=== PATIENT | male | born 1950 | race Caucasian/White ===

== ENCOUNTER 2017-07-28 16:27 | Emergency (ER) | payer MEDICARE, BC ==
[2017-07-28 17:10] VITALS: BP 167/100
--- NOTE | 2017-07-28 18:20 | EDM.PDOC ---
ED HPI GENERAL MEDICAL PROBLEM - General Chief Complaint: Back Pain or Injury Stated Complaint: LOWER BACK PAIN Time Seen by Provider: 07/28/17 18:05 Source of Information: Reports: Patient History Limitations: Reports: No Limitations - History of Present Illness INITIAL COMMENTS - FREE TEXT/NARRATIVE: 67 yo male here with low back pain for a couple days not associated with injury. Has pain going down the R leg to the level of the knee. Worse with coughing. Pain began when in [place], but didn't want to miss out on the hunting experience so [place] and was worse after the long trip. Has a PHx of CVA , but not back problems. Onset: Gradual Onset Date: 07/25/17 Duration: Day(s):, Getting Worse Location: Reports: Back, Radiates to (R knee) Quality: Reports: Ache Severity: Moderate Improves with: Reports: Rest Worsens with: Reports: Movement Context: Reports: Other (unknown) Associated Symptoms: Reports: No Other Symptoms Treatments [employer]: Reports: Other (see below) (none) Lower Back Pain Score (Numeric/FACES): 5 - Related Data Allergies Allergy/AdvReac Type Severity Reaction Status Date / Time No Known Allergies Allergy Verified 07/28/17 17:10 Home Meds: Home Meds atorvaSTATin [Lipitor] 40 mg PO BEDTIME 07/06/13 [History] Acetaminophen/HYDROcodone [Marienthal 325-5 MG] 1 - 2 tab PO Q4H PRN #30 tab [Rx] Aspirin [Halfprin] 1 tab PO BEDTIME 07/28/17 [History] Cholecalciferol (Vitamin D3) [Vitamin D3] 1 tab PO DAILY 07/28/17 [History] Lisinopril [Lisinopril] 1 tab PO DAILY 07/28/17 [History] Multivitamin [Multivitamins] 1 tab PO DAILY 07/28/17 [History] Prednisone [IJD: Prednisone] 10 mg PO ASDIRECTED #30 tab 07/28/17 [Rx] Vitamin B Complex & Vit C No.4 [Super B Complex] 1 tab PO DAILY 07/28/17 [ History] Past Medical History - Past Health History Medical/Surgical History: Denies Medical/Surgical History HEENT History: Reports: Impaired Vision Cardiovascular History: Reports: High Cholesterol Neurological History: Reports: CVA - Past Surgical History Musculoskeletal Surgical History: Reports: Other (See Below) Other Musculoskeletal Surgeries/Procedures:: bunionectomy Social & Family History - Tobacco Use Smoking Status *Q: Never Smoker - Alcohol Use Days Per Week of Alcohol Use: 1 Number of Drinks Per Day: 1 Total Drinks Per Week: 1 - Recreational Drug Use Recreational Drug Use: No ED ROS GENERAL - Review of Systems Review Of Systems: See Below Constitutional: Reports: No Symptoms Respiratory: Reports: No Symptoms Cardiovascular: Reports: No Symptoms GI/Abdominal: Reports: No Symptoms : Reports: No Symptoms Musculoskeletal: Reports: Back Pain Skin: Reports: No Symptoms Neurological: Reports: Other (pain radiates to the R knee.) Psychiatric: Reports: No Symptoms ED EXAM,LOWER BACK PAIN/INJURY - Physical Exam Exam: See Below Exam Limited By: No Limitations General Appearance: Alert, WD/WN, No Apparent Distress Head: Atraumatic, Normocephalic Respiratory/Chest: No Respiratory Distress, Lungs Clear, Normal Breath Sounds, No Accessory Muscle Use Cardiovascular: Regular Rate, Rhythm Back Exam: Normal Inspection, Other (Straight leg raising reveals very tight hamstrings bilat, R worse than L. Pain in the R SI joint, not Sciatic notch. No spinal pain. Coughing makes pain radiate down the leg more. No apparent muscle spasms of lumbar spine. ). No: Full Range of Motion, CVA Tenderness (R), CVA Tenderness (L), Muscle Spasm, Vertebral Tenderness Extremities: Normal Inspection Neurological: Alert, Normal Mood/Affect, Normal Dorsiflexion, CN II-XII Intact, No Motor/Sensory Deficits, Oriented x 3 Psychiatric: Normal Affect, Normal Mood Skin Exam: Warm, Dry, Intact, Normal Color, No Rash Lymphatic: No Adenopathy Course - Vital Signs Last Recorded V/S: Last Vital Signs Temp 36.6 C 07/28/17 17:08 Pulse 94 07/28/17 17:08 Resp 18 07/28/17 17:08 BP 167/100 H 07/28/17 17:08 Pulse Ox 95 07/28/17 17:08 Departure - Departure Time of Disposition: 18:24 Disposition: Home, Self-Care 01 Condition: Fair Clinical Impression: Lumbar radicular pain - Discharge Information Prescriptions: Acetaminophen/HYDROcodone [Marienthal 325-5 MG] 1 - 2 tab PO Q4H PRN #30 tab PRN Reason: Pain Prednisone [IJD: Prednisone] 10 mg PO ASDIRECTED #30 tab Referrals: PCP,None [Primary Care Provider] - Forms: ED Department Discharge Additional Instructions: Take prednisone as directed. Take Marienthal as needed for pain relief. Add ibuprofen 400 mg every 6 hrs with food for added relief. No lifting, bending, or twisting. Recheck with your doctor as soon as you return home.
== END 2017-07-28 18:28 | disposition home or self-care (01) ==
LOC: JP.ED 16:27
DX: M54.16 Radiculopathy, lumbar region (principal); E78.00 Pure hypercholesterolemia, unspecified; Z79.82 Long term (current) use of aspirin; Z79.899 Other long term (current) drug therapy
CPT/HCPCS: 99283